=== PATIENT | male | born 2000 | race Caucasian/White ===

== ENCOUNTER 2018-08-20 08:16 | Emergency (ER) | payer OTHER ==
[~2018-08-20] VITALS: Ht 170.2 cm; Wt 57.6 kg
[2018-08-20] MEDS ORDERED: LEVE500 PO ×2 (08:54→09:47)
== END 2018-08-20 09:50 | disposition home or self-care (01) ==
LOC: ER 08:16
DX: G40.909 Epilepsy, unspecified, not intractable, without status epilepticus (principal); Z79.899 Other long term (current) drug therapy
CPT/HCPCS: 99283

== ENCOUNTER 2018-10-20 10:46 | Emergency (ER) | payer OTHER ==
[~2018-10-20] VITALS: Ht 172.7 cm; Wt 59.0 kg
[~2018-10-20 10:46] MED LIST: IBUP800 PO; LEVE500 PO; PENVK500 PO
[2018-10-20] MEDS ORDERED: LEVE500 PO (13:14)
== END 2018-10-20 13:22 | disposition home or self-care (01) ==
LOC: ER 10:46
DX: G40.909 Epilepsy, unspecified, not intractable, without status epilepticus (principal); Z91.19 Patient's noncompliance with other medical treatment and regimen; Z79.899 Other long term (current) drug therapy; F17.200 Nicotine dependence, unspecified, uncomplicated
CPT/HCPCS: 82947; 96365; 99284-25; J1953

== ENCOUNTER 2019-04-30 10:42 | Emergency (ER) | payer OTHER ==
[~2019-04-30] VITALS: Ht 170.2 cm; Wt 59.0 kg
== END 2019-04-30 12:00 | disposition home or self-care (01) ==
LOC: ER 10:42
DX: J02.9 Acute pharyngitis, unspecified (principal); Z79.899 Other long term (current) drug therapy; G43.909 Migraine, unspecified, not intractable, without status migrainosus; F17.200 Nicotine dependence, unspecified, uncomplicated
CPT/HCPCS: 87081; 87430; 99283